=== PATIENT | male | born 1950 | race Hispanic/Latino ===

== ENCOUNTER 2017-01-27 05:26 | Day surgery (SDC) | payer OTHER ==
[~2017-01-27] VITALS: Ht 170.2 cm; Wt 64.8 kg
[2017-01-27] VITALS (9 sets, daily range): BP systolic 107–130; BP diastolic 61–79; PULSE 20–66; RESP 13–20; O2SAT 93–99
[~2017-01-27 05:26] MED LIST: Lactated Ringer's 1,000 ML IV SCH
[2017-01-27] MEDS ORDERED: Succinylcholine Chloride 20 mg/mL 5 mL Inj ONE (05:27)
[2017-01-27] MEDS ORDERED: Ketamine 10 mg/mL 20 mL Inj ONE (05:27)
[2017-01-27] MEDS ORDERED: Ondansetron 2 mg/mL 2 mL Inj ONE (05:27)
[2017-01-27] MEDS ORDERED: Dexamethasone 4 mg/mL Inj ONE (05:27)
[2017-01-27] MEDS ORDERED: Propofol 10,000 mCg/mL 20 mL Inj ONE (05:27)
[2017-01-27] MEDS ORDERED: Lactated Ringer's 1,000 ML IV ONE (05:54)
[2017-01-27] MEDS ORDERED: CeFAZolin 2 Gm/50 mL D5W IV Premix IV ONE (06:00)
[2017-01-27] MEDS ORDERED: CeFAZolin Inj 2 gm / 50mL D5W IV ONE (06:04)
[2017-01-27] MEDS ORDERED: Lactated Ringer's 1,000 ML IV SCH (06:56)
[2017-01-27] MEDS ORDERED: Lactated Ringer's 500 ML IV PRN (06:56)
[2017-01-27] MEDS ORDERED: Phenylephrine 10,000 mCg/mL Inj IVPUSH PRN (07:00)
[2017-01-27] MEDS ORDERED: fentaNYL-PF 50 mCg/mL 2 mL Inj IVPUSH PRN (07:00)
[2017-01-27] MEDS ORDERED: MetoCLOpramide 5 mg/mL 2 mL Inj IVPUSH PRN (07:00)
[2017-01-27] MEDS ORDERED: EPHEDrine Sulfate 50 mg/mL Inj IVPUSH PRN (07:00)
[2017-01-27] MEDS ORDERED: HYDROmorphone 1 mg/mL Inj IVPUSH PRN (07:00)
[2017-01-27] MEDS ORDERED: Ondansetron 2 mg/mL 2 mL Inj IVPUSH PRN (07:00)
[2017-01-27] MEDS ORDERED: Dexamethasone 4 mg/mL Inj IVPUSH PRN (07:00)
[2017-01-27] MEDS ORDERED: Labetalol 5 mg/mL 4 mL Inj IV PRN (07:00)
--- NOTE | 2017-01-27 07:15 | PCM.HPANE ---
Patient Data Date of Service: Jan 27, 2017 Surgeon Admitting Provider: Attending Provider:Mignon Andrade MD Primary Care Physician:Magalie Other Provider:Gomez Murdock Anesthesia Reason for Visit Bladder Cancer Ht/WT & BMI Height (Feet): 5 Height (Inches): 7 Weight (Kilograms): 64.77 Body Mass Index 22.00 Allergies Coded Allergies: No Known Allergies (Unverified , 01/25/17) Past Anesthesia History Anesthesia History: Denies:: Abnormal Airway, Anesthesia Reactions, Difficult Intubation Diabetes History Hx Diabetes?: No MRSA MRSA: No Medications Hypertension Medication: No Home Meds Incl Beta Aixa: No No Active Prescriptions or Reported Meds History HEENT History: Denies:: Abnormal Airway Cataracts Difficult Intubation Dysphagia Glaucoma Hearing Problem Sinus Problem TMJ Hx of Heart Problems?: No Cardiovascular History: Denies:: AICD Abdominal Aortic Aneurism Atrial Fibrillation Cardiac Surgery Chest Pain Heart Murmur Hypertension Irregular Heartbeat Pacemaker Hx of Respiratory Problem?: No Respiratory History: Denies:: Asthma COPD Emphysema Oxygen Administration Pneumonia Tuberculosis Use of C-PAP Machine Use of Inhalers / NEBS Hx Neurologic Problems?: No Neurological History: Denies:: Alzheimer's Disease CVA Dementia Headaches Multiple Sclerosis Parkinson's Disease Seizures Hx of GI Problems?: No Gastrointestinal History: Denies:: Gall Bladder Disease Gastroesphageal Reflux Heartburn Hiatal Hernia Other GI Pertinent History: hx of left inguinal hernia Hx of Problems?: Yes Genitourinary History: Denies:: Kidney Stones Urinary Tract Infection Other Pertinent History: recurrent bladder cancer current admission problem Male Hx: Denies:: Prostate Problems Skin History: Positive for:: History Skin Disorders? (some spots on hand, Dr Andrade has seen them) Denies:: Pressure Ulcers Hx Musculoskeletal Problems?: Yes Musculoskeletal History: Denies:: Back Injury Fibromyalgia Joint Replacement Musculoskeletal Trauma Osteoarthritis Hx of Psycho/Social Problems?: No Hx Surgeries?: Yes (turbt, hernia ) Hx Any Other Health Problems?: Yes Other History: Positive for:: Cancer (bladder cancer) Denies:: Thyroid Disease Hx Diabetes: No Hx Alcohol Use: YesAlcoholic Drinks Per Day: 6 beers dailyHx Substance Use: Yes (marijuana, inhaled daily )Have You Smoked inLast 12 mo: No Stop/Bang S-Snoring: Do You Snore Loudly: No T-Tired: feel tired, fatigued: No O-Obsered: Observed not breath: No P-Blood Pressure: treated: No B- Body Mass Index > 35 kg/m2: No A- Age over 50: Yes N- Neck Large Circumference: No G- Gender Male: Yes SHANTELL Total Score: 2 SHANTELL Risk Assessment: Low Risk, <3 Yes Risk Assessment Category Category 1A: Patient has history of documented sleep apnea, and HAS NOT received any narcotic, sedative or anesthesia administration during this stay. Category 1B: Patient has history of documented sleep apnea, and HAS received any narcotic , sedative or anesthesia administration during this stay Category 2: Patient has SUSPECTED Obstructive Sleep Apnea, and HAS received any narcotic , sedative or anesthesia administration during this stay. Category 3: Patient has SUSPECTED Obstructive Sleep Apnea and HAS NOT received narcotic, sedative or anesthesia administration during this stay. Category 4: Outpatient in Procedural Areas with known sleep apnea or who screen positive for High Risk via the STOP/BANG questionnaire. Exam Exam Vital Signs Vital Signs Date Time Temp Pulse Resp B/P Pulse Ox O2 Delivery O2 Flow Rate FiO2 01/27/17 05:55 36.3 53 17 110/67 96 Room Air General Appearance: Alert, Oriented X3, Cooperative, No Acute Distress HEENT/AIRWAY: MP 2 Lungs: Clear to Auscultation, Normal Air Movement Heart: Exam Unremarkable, Regular Rate/Rhythm, No Murmurs/Rubs/Gallops Meds/Labs/Diagnostics Admission Meds Current Medications Lactated Ringer's (Lr) 1,000 ml @ ud STK-MED ONCE IV Last administered on 01/27t 05:54; Start 01/27/17 at 05:54; Stop 01/27/17 at 05:55; Status DC Plan Impression Patient chart reviewed, patient interviewed and anesthestic plan with risks, benefits, and alternatives discussed, and informed consent obtained. NPO Status: 01/26@1999, juice coconut@2300 ASA Physical Status: ASA2 Mod Systemic Disease Anesthetic Plan: GA Bene/Risks/Altern/Consents: Yes HP Complete Prior to Induction: Yes Roney Gonzalez MD Jan 27, 2017 07:15
[2017-01-27] MEDS ORDERED: Belladonna Alk-Opium 60 mg Rectal Suppository RECTAL ONE (08:10)
[2017-01-27] MEDS ORDERED: oxyCODONE-Acetamin 5-325 mg Tablet PO PRN (08:30)
--- NOTE | 2017-01-27 08:43 | PCM.ANEP1 ---
Post Anesthesia Phase 1 PACU Phase 1 Assessment Date of Service: Jan 27, 2017 Vital Signs Vital Signs Date Time Temp Pulse Resp B/P Pulse Ox O2 Delivery O2 Flow Rate FiO2 01/27/17 08:35 65 13 126/75 93 Room Air 01/27/17 08:30 36.3 66 15 125/71 93 Room Air 01/27/17 05:55 36.3 53 17 110/67 96 Room Air Anesthetic Administered: GA Level of Alertness: Awake, talking Pain: No Nausea or Vomiting: No Oxygen Delivery: Room Air Lungs: Clear to Auscultation, Normal Air Movement Roney Gonzalez MD Jan 27, 2017 08:43
--- NOTE | 2017-01-27 08:43 | PCM.ANEP2 ---
Post Anesthesia Evaluation ASA/CMS Post Anesthesia VS in Patient's Normal Range?: Yes Resp Stable; Airway Patent?: Yes CV Function & Hydration Stable: Yes Mental Status Recovered?: Yes Pain control Satisfactory?: Yes N/V Control Satisfactory?: Yes Roney Gonzalez MD Jan 27, 2017 08:43
--- NOTE | 2017-01-27 23:55 | OP ---
[address] [address] OPERATIVE REPORT PATIENT: VÍCTOR SLAUGHTER : 1950 MR#: [id number] ADMIT: 01/27/2017 JOB ID: [id number] DATE OF SURGERY: SURGEON: PREOPERATIVE DIAGNOSIS(ES): Bladder cancer. POSTOPERATIVE DIAGNOSIS(ES): Bladder cancer. PROCEDURE: 1. Cystoscopy. 2. Bladder biopsies. ANESTHESIA: General anesthetic. ANESTHESIOLOGIST: Roney Gonzalez MD PROCEDURE IN DETAIL: Under general anesthetic, the patient was placed in lithotomy position. Genitalia prepped and draped in a sterile manner. A 22-Kazakh cystoscope was introduced through a normal urethra. Bladder itself was lightly trabeculated with patchy erythema. Biopsies were taken of the right and left side chambers and posterior wall. The Bugbee electrode was used to cauterize the biopsy sites. The patient tolerated the procedure well, left the operating room in good condition.
--- NOTE | 2017-02-01 14:18 | PATH ---
SURGICAL PATHOLOGY Attending Physician:Mignon Andrade MD () CASE STATUS: Signed Out PATIENT NAME: VÍCTOR SLAUGHTER PID: [id number] : 1950 DATE COLLECTED:01/27/2017 17:18 SPECIMEN: 1: Bladder, Biopsy 2: Bladder, Biopsy 3: Bladder, Biopsy CLINICAL HISTORY: BLADDER CANCER 1). POSTERIOR WALL BLADDER 2). LEFT SIDE WALL BLADDER 3). RIGHT SIDE WALL BLADDER FINAL DIAGNOSIS: 1.POSTERIOR BLADDER WALL, BIOPSY: PAPILLARY TRANSITIONAL CELL CARCINOMA, HIGH GRADE. TUMOR DOES NOT INVADE THE LAMINA PROPRIA. NO MUSCULARIS PROPRIA IS PRESENT. 2.LEFT SIDE WALL BLADDER, BIOPSY: HIGH GRADE TRANSITIONAL CELL CARCINOMA. TUMOR DOES NOT INVADE THE LAMINA PROPRIA. NO MUSCULARIS PROPRIA IS PRESENT. 3.RIGHT SIDE BLADDER WALL, BIOPSY: IN SITU TRANSITIONAL CELL CARCINOMA. TUMOR DOES NOT INVADE THE LAMINA PROPRIA. MUSCULARIS PROPRIA IS NOT PRESENT. ICD10 CODE C67.9 NOTE: As part of a routine senior software quality analyst, Dr. José Miguel Alegria has also reviewed this case and agrees with the diagnosis. GROSS DESCRIPTION: The specimen is received in three formalin filled containers labeled with the patient's name. 1). The specimen is sublabeled "posterior wall bladder" and consists of a 0.3 x 0.3 x 0.3 CM portion of tissue which is entirely submitted in cassette 1A. 2). The specimen is sublabeled "left sidewall bladder" and consists of a 0.4 x 0.3 x 0.3 CM portion of tissue which is entirely submitted in cassette tissue. 3). The specimen is sublabeled "right sidewall bladder" and consists of a 0.3 x 0.3 x 0.3 CM portion of tissue which is entirely submitted in cassette 3A. 01/27/2017 [facility] MICRO DESCRIPTION: See diagnosis. ICD-9 CODES: CPT CODES: 1: 42800 2: 26888 3: 67253 Electronically Signed Out Familia Bledsoe MD [facility] Pathology [facility] [address], [place] [address] Technical component performed at [facility], [facility] [address], [place], [address]
== END 2017-01-27 23:59 | disposition home or self-care (01) ==
LOC: SAS 05:26
PROVIDERS: ATTEND Urology
DX: C67.4 Malignant neoplasm of posterior wall of bladder (principal); F17.210 Nicotine dependence, cigarettes, uncomplicated; F12.90 Cannabis use, unspecified, uncomplicated
CPT/HCPCS: 52204; J0330; J0690; J1100; J2250; J2405; J7120